=== PATIENT | female | born 1995 | race Hispanic/Latino ===

== ENCOUNTER 2020-05-09 14:21 | Emergency (ER) | payer OTHER ==
[~2020-05-09] VITALS: Ht 149.9 cm; Wt 41.0 kg
[~2020-05-09 14:21] MED LIST: BACTRIM DS1 TAB PO
[2020-05-09] MEDS ORDERED: IBUPROFEN600 MG PO (16:02)
[2020-05-09] MEDS ORDERED: KEFLEX250 MG PO (16:02)
[2020-05-09 16:19] VITALS: BP 125/71
== END 2020-05-09 16:19 | disposition home or self-care (01) | DRG 605 ==
LOC: ED 14:21
DX: S61.315A Laceration without foreign body of left ring finger with damage to nail, initial encounter (principal); W27.2XXA Contact with scissors, initial encounter; Y92.89 Other specified places as the place of occurrence of the external cause; Y99.0 Civilian activity done for income or pay

== ENCOUNTER 2021-03-05 15:12 | Emergency (ER) | payer SELFPAY ==
[~2021-03-05] VITALS: Ht 149.9 cm; Wt 48.0 kg
[~2021-03-05 15:12] MED LIST changes: +IBUPROFEN600 MG PO; +KEFLEX250 MG PO
[2021-03-05 16:28] LABS: HEMATOCRIT 35.3 % (37.0-47.0); HEMOGLOBIN 11.8 g/dl (12.0-16.0); IMMATURE GRANULOCYTES 0.3 % (0.0-5.0); MEAN CELL VOLUME 87.4 fL CALC (80.0-100.0); MEAN CORPUSCULAR HGB 29.2 pG CALC (26.0-32.0); MEAN CORPUSCULAR HGB CONC 33.4 g/dL CAL (32.0-36.0); NEUT# 4.37 thou/uL (2.00-7.15); RED BLOOD COUNT 4.04 mill/uL (4.20-5.60); RED CELL DISTRI WIDTH 12.6 % (11.5-15.5)
[2021-03-05 16:30] LABS: URINE BILIRUBIN - DIPSTICK NEGATIVE (NEGATIVE); URINE BLOOD DIPSTICK LARGE (NEGATIVE); URINE COLOR YELLOW; URINE GLUCOSE - DIPSTICK NEGATIVE (NEGATIVE); URINE KETONE NEGATIVE (NEGATIVE); URINE LEUK ESTERASE NEGATIVE (NEGATIVE); URINE PH 6.5 (4.5-8.0); URINE PROTEIN - DIPSTICK NEGATIVE (NEG-TRACE); URINE UROBILINOGEN - DIPSTICK 0.2 E.U./dL (0.2)
[2021-03-05 16:33] LABS: URINE NITRITE - DIPSTICK NEGATIVE (Negative)
[2021-03-05 16:43] LABS: URINE SQUAMOUS EPITHELIAL CELL FEW EPI/hpf (0-FEW); URINE WBC 0-2 WBC/hpf (0-5)
[2021-03-05 16:44] LABS: ALBUMIN 4.2 g/dL (3.2-5.0); ALKALINE PHOSPHATASE 84 u/l (38-126); ANION GAP 12 (6-22 (CALC)); BILIRUBIN, TOTAL 0.4 mg/dL (0.0-1.4); BUN 8 mg/dL (7-17); BUN/CREATININE RATIO 14 (12-20 (CALC)); CARBON DIOXIDE 25 mmol/l (22-30); CHLORIDE 106 mmol/l (95-108); CREATININE 0.6 mg/dL (0.5-1.0); GFR > 60 ML/MIN (>=60 (CALC)); GFR FOR AFR.AMER. > 60 ML/MIN (>=60 (CALC)); LIPASE 46 u/l (23-300); POTASSIUM 3.7 mmol/l (3.5-5.1); SGOT/AST 35 u/l (14-36); SODIUM 139 mmol/l (137-146); TOTAL PROTEIN 7.9 g/dL (6.3-8.2)
[2021-03-05 17:45] VITALS: BP 116/65
== END 2021-03-05 17:45 | disposition home or self-care (01) | DRG 761 ==
LOC: ED 15:12
PROVIDERS: Family Medicine
DX: N94.6 Dysmenorrhea, unspecified (principal)

== ENCOUNTER 2021-06-18 00:27 | Emergency (ER) | payer SELFPAY ==
[~2021-06-18] VITALS: Ht 149.9 cm; Wt 47.0 kg
[2021-06-18 01:23] LABS: HEMATOCRIT 35.1 % (37.0-47.0); HEMOGLOBIN 12.1 g/dl (12.0-16.0); IMMATURE GRANULOCYTES 0.8 % (0.0-5.0); MEAN CELL VOLUME 84.6 fL CALC (80.0-100.0); MEAN CORPUSCULAR HGB 29.2 pG CALC (26.0-32.0); MEAN CORPUSCULAR HGB CONC 34.5 g/dL CAL (32.0-36.0); NEUT# 5.86 thou/uL (2.00-7.15); RED BLOOD COUNT 4.15 mill/uL (4.20-5.60); RED CELL DISTRI WIDTH 11.7 % (11.5-15.5)
[2021-06-18 01:24] LABS: URINE BILIRUBIN - DIPSTICK NEGATIVE (NEGATIVE); URINE BLOOD DIPSTICK TRACE-INTACT (NEGATIVE); URINE COLOR YELLOW; URINE GLUCOSE - DIPSTICK NEGATIVE (NEGATIVE); URINE KETONE NEGATIVE (NEGATIVE); URINE LEUK ESTERASE TRACE (NEGATIVE); URINE PH 6.5 (4.5-8.0); URINE PROTEIN - DIPSTICK NEGATIVE (NEG-TRACE); URINE SPECIFIC GRAVITY <=1.005; URINE UROBILINOGEN - DIPSTICK 0.2 E.U./dL (0.2)
[2021-06-18 01:29] LABS: URINE NITRITE - DIPSTICK NEGATIVE (Negative)
[2021-06-18 01:34] LABS: ALKALINE PHOSPHATASE 62 u/l (38-126); AMYLASE 69 u/l (30-110); ANION GAP 10 (6-22 (CALC)); BILIRUBIN, TOTAL 0.4 mg/dL (0.0-1.4); BUN 4 mg/dL (7-17); BUN/CREATININE RATIO 10 (12-20 (CALC)); CARBON DIOXIDE 27 mmol/l (22-30); CHLORIDE 102 mmol/l (95-108); CREATININE 0.4 mg/dL (0.5-1.0); GFR > 60 ML/MIN (>=60 (CALC)); GFR FOR AFR.AMER. > 60 ML/MIN (>=60 (CALC)); LIPASE 65 u/l (23-300); POTASSIUM 3.5 mmol/l (3.5-5.1); SGOT/AST 24 u/l (14-36); SODIUM 136 mmol/l (137-146); TOTAL PROTEIN 7.6 g/dL (6.3-8.2)
[2021-06-18 02:15] LABS: BETA-HCG, QUANT(RESULT NUMBER) 74705 mIU/mL
[2021-06-18] MEDS ORDERED: OB COMPLET2 PO (02:20)
[2021-06-18] MEDS ORDERED: PEPCID20 MG PO (02:20)
[2021-06-18 02:37] VITALS: BP 123/62
== END 2021-06-18 02:25 | disposition home or self-care (01) | DRG 833 ==
LOC: ED 00:27
PROVIDERS: Family Medicine
DX: O26.899 Other specified pregnancy related conditions, unspecified trimester (principal); R10.11 Right upper quadrant pain; R10.31 Right lower quadrant pain; Z3A.00 Weeks of gestation of pregnancy not specified